=== PATIENT | female | born 1965 | race Caucasian/White ===

== ENCOUNTER → 2018-02-26 14:11 | Outpatient (CLI) | payer OTHER, SELFPAY | PROVIDERS: PCP Obstetrics & Gynecology; Visit Provider Physician Assistant | DX: R10.9 Unspecified abdominal pain (principal) | CPT/HCPCS: 87077; 87086; 87147 ==

== ENCOUNTER → 2018-03-04 07:12 | Outpatient (CLI) | payer OTHER, SELFPAY ==
[2018-03-04 08:11] LABS: Add Manual Diff / Slide Review NO; Basophils Percent Auto 0.8 % (0-2); Eosinophils Percent Auto 4.7 % (2-4); Hematocrit 38.8 % (36-46); Hemoglobin 13.1 g/dL (12.0-16.0); Lymphocytes Percent Auto 36.4 % (25-40); Mean Corpuscular HGB Conc 33.9 % (30-36); Mean Corpuscular Hemoglobin 30.2 PG (26-34); Monocytes Percent Auto 8.5 % (3-14); Neutrophils Absolute Auto 2700 /uL (3000-5900); Neutrophils Percent Auto 49.6 % (50-75); Platelet Count 303 X10^3/uL (150-400); Red Blood Cell Count 4.35 X10^6/uL (4.0-5.2); Red Cell Distribution Width 13.2 % (11.6-14.8); White Blood Cell Count 5.4 X10^3/uL (4.5-11.0)
[2018-03-04 08:28] LABS: Alanine Aminotransferase 26 IU/L (9-52); Albumin 4.3 g/dL (3.5-5.0); Albumin Globulin Ratio 1.5 (1.0-2.8); Alkaline Phosphatase 83 U/L (38-126); Aspartate Aminotransferase 30 IU/L (14-36); BUN Creatinine Ratio 18.6 (6-22); Bilirubin Total 0.3 mg/dL (0.2-1.3); Blood Urea Nitrogen 13 mg/dL (7-17); Calcium 9.4 mg/dL (8.4-10.2); Carbon Dioxide 29 mmol/L (22-32); Chloride 107 mmol/L (98-107); Estimated Glomerular Filt Rate > 60.0 mL/min (>60); Globulin 2.9 g/dL (1.7-4.1); Glucose 105 mg/dL (70-100); HEMOLYSIS < 15 (0-50); Lipase 51 U/L (23-300); Potassium 4.5 mmol/L (3.4-5.1); Sodium 144 mmol/L (137-145); Total Protein 7.2 g/dL (6.3-8.2)
[2018-03-07 13:01] LABS: Cancer Antigen 125 < 6 U/mL (0-35)
== END ==
PROVIDERS: PCP Obstetrics & Gynecology; Visit Provider Physician Assistant
DX: R10.9 Unspecified abdominal pain (principal); R10.2 Pelvic and perineal pain
CPT/HCPCS: 36415; 80053; 83690; 85025; 86304

== ENCOUNTER → 2018-03-16 07:06 | Outpatient (CLI) | payer OTHER, SELFPAY ==
--- NOTE | 2018-03-16 07:07 | DI.US.S_ITS ---
PROCEDURE: US PELVIC COMPLETE INDICATIONS: PAIN TECHNIQUE: Real-time scanning was performed of the pelvic organs, with image documentation. Additional endovaginal scanning was necessary due to incomplete visualization of the adnexal and endometrial structures by transabdominal scanning. COMPARISON: None. FINDINGS: Transabdominal scanning: Limited scanning through the kidneys shows no hydronephrosis. No pathologic free abdominal or pelvic fluid. Endovaginal scanning: Uterus: Uterus is normal in size at 6.7 x 3.8 x 4.1 cm. The endometrium measures are 4.7 mm in combined thickness. Ovaries: Right ovary measures 19 x 16 x 19 mm. The left ovary measures 17 x 8 x 9 mm. Both ovaries and adnexal regions are unremarkable. IMPRESSION: 1. Unremarkable exam. Dictated by: Gerda Toscano M.D. on 03/16/2018 at 10:58 Approved by: Gerda Toscano M.D. on 03/16/2018 at 11:03
== END ==
PROVIDERS: PCP Obstetrics & Gynecology; Visit Provider Obstetrics & Gynecology
DX: R10.2 Pelvic and perineal pain (principal)
CPT/HCPCS: 76830; 76856

== ENCOUNTER → 2018-03-25 15:15 | Outpatient (CLI) | payer OTHER, SELFPAY ==
[2018-03-25 18:59] LABS: Bacteria Urine None Seen
[2018-03-25 19:03] LABS: Appearance Urine UA CLEAR; Bilirubin Urine UA NEGATIVE (NEGATIVE); Color Urine UA YELLOW; Glucose Urine UA NEGATIVE (Normal); Ketones Urine UA NEGATIVE (NEGATIVE); Leukocyte Esterase Urine UA NEGATIVE (NEGATIVE); Nitrite Urine UA NEGATIVE (Negative); Occult Blood Urine UA TRACE-INTACT (Negative); Protein Urine UA NEGATIVE (Negative); Specific Gravity Urine UA >=1.030 (1.000-1.035); Urobilinogen Urine UA 0.2 E.U./dL (0.2)
[2018-03-25 19:24] LABS: RBC Urine 0-1/HPF (0-5/HPF); Squamous Epithelial Cell Urine 0-1 /HPF; WBC Urine 0-1/HPF (0-5/HPF)
[2018-03-25 19:25] LABS: Culture Indicated Urine Specimen Cultured; Urine Comments Cx Request: comments
== END ==
PROVIDERS: PCP Obstetrics & Gynecology; Visit Provider Obstetrics & Gynecology
DX: R30.0 Dysuria (principal)
CPT/HCPCS: 81001; 87086

== ENCOUNTER → 2018-04-28 11:36 | Outpatient (CLI) | payer OTHER, SELFPAY ==
--- NOTE | 2018-04-28 11:37 | DI.MG.S_ITS ---
BILATERAL DIGITAL SCREENING MAMMOGRAM 3D/2D WITH CAD: 04/28/2018 CLINICAL: Routine screening. Family history of breast cancer. Comparison is made to exams dated: 02/27/2016 mammogram, 05/21/2011 mammogram, and 05/19/2010 mammogram - [facility]. The tissue of both breasts is heterogeneously dense. This may lower the sensitivity of mammography. Current study was also evaluated with a Computer Aided Detection (CAD) system. No significant masses, calcifications, or other findings are seen in either breast. There has been no significant interval change. IMPRESSION: NEGATIVE There is no mammographic evidence of malignancy. A 1 year screening mammogram is recommended. This exam was interpreted at Station ID: [id number]. NOTE: For mammograms, a report in lay terms will be sent to the patient. Approximately 15% of breast malignancies will not be visualized mammographically. In the management of a palpable breast mass, a negative mammogram must not discourage biopsy of a clinically suspicious lesion. Electronically Signed By: Ajay hankins/nabil:04/28/2018 17:51:09 letter sent: Normal Exam ACR BI-RADS Category 1: Negative 3341F
== END ==
PROVIDERS: PCP Obstetrics & Gynecology; Visit Provider Obstetrics & Gynecology
DX: Z12.31 Encounter for screening mammogram for malignant neoplasm of breast (principal); Z80.3 Family history of malignant neoplasm of breast
CPT/HCPCS: 77063; 77067

== ENCOUNTER → 2019-06-01 17:02 | Outpatient (CLI) | payer OTHER, SELFPAY ==
--- NOTE | 2019-06-01 17:03 | DI.MG.S_ITS ---
BILATERAL DIGITAL SCREENING MAMMOGRAM 3D/2D WITH CAD: 06/01/2019 CLINICAL: Routine screening. Family history of breast cancer. Comparison is made to exams dated: 04/28/2018 mammogram, 02/27/2016 mammogram, and 05/21/2011 mammogram - [facility]. The tissue of both breasts is heterogeneously dense. This may lower the sensitivity of mammography. Current study was also evaluated with a Computer Aided Detection (CAD) system. No significant masses, calcifications, or other findings are seen in either breast. There has been no significant interval change. IMPRESSION: NEGATIVE There is no mammographic evidence of malignancy. A 1 year screening mammogram is recommended. This exam was interpreted at Station ID: [id number]. NOTE: For mammograms, a report in lay terms will be sent to the patient. Approximately 15% of breast malignancies will not be visualized mammographically. In the management of a palpable breast mass, a negative mammogram must not discourage biopsy of a clinically suspicious lesion. Electronically Signed By: Lianne morton/nabil:06/02/2019 12:30:31 letter sent: Normal Exam ACR BI-RADS Category 1: Negative 3341F
== END ==
PROVIDERS: PCP Nurse Practitioner; Visit Provider Nurse Practitioner
DX: Z12.31 Encounter for screening mammogram for malignant neoplasm of breast (principal); Z80.3 Family history of malignant neoplasm of breast
CPT/HCPCS: 77063; 77067

== ENCOUNTER → 2019-06-29 10:27 | Outpatient (CLI) | payer OTHER, SELFPAY ==
[2019-06-29 10:55] LABS: Creatine Kinase 89 U/L (30-135)
[2019-06-29 11:08] LABS: Troponin I < 0.012 ng/mL (0.01-0.034)
[2019-06-29 11:46] LABS: Free T3, Triiodothyronine Free 3.48 pg/mL (2.77-5.27)
[2019-06-29 12:00] LABS: Thyroid Stimulating Hormone 0.24 uIU/mL (0.47-4.68)
== END ==
PROVIDERS: PCP Nurse Practitioner; Visit Provider Nurse Practitioner
DX: I10 Essential (primary) hypertension (principal); R00.2 Palpitations; R07.89 Other chest pain
CPT/HCPCS: 36415; 82550; 84439; 84443; 84481; 84484

== ENCOUNTER → 2019-07-19 12:58 | Outpatient (CLI) | payer OTHER, SELFPAY ==
--- NOTE | 2019-07-19 | DI.NM.S_ITS ---
PROCEDURE: NM KAREN PERF SPECT REST & STR Rest and exercise myocardial perfusion SPECT with gated imaging and ejection fraction RADIOPHARMACEUTICAL: 26.6 mCi Tc-99m sestamibi IV at rest and 25.6 mCi Tc-99m sestamibi IV at peak exercise. A [id number] was performed. INDICATIONS: PALPATATIONS TECHNIQUE: Radiopharmaceutical was injected at peak stress test, and also at rest. SPECT images were obtained. SPECT myocardial perfusion images were displayed in short axis, horizontal long axis, and vertical long axis views. Gated images were reviewed using [employer] software. COMPARISON: None. CARDIAC STRESS: A standard Hector treadmill exercise tolerance test was performed by the patient under the supervision of an attending staff. The patient exercised for 10 minutes and 21 seconds; functional aerobic impairment (AURELIO) is -34 %. Hemodynamic data: There is normal blood pressure and heart rate response to exercise stress. Patient achieved 92% of maximum predicted heart rate at peak exercise. Symptoms: Patient denied chest pain during exercise. EKG: No diagnostic EKG changes of ischemia; no obvious ectopy or arrhythmias but the baseline artifact at peak exercise limits sensitivity. No arrhythmias in recovery. FINDINGS: Raw data: There is good myocardial labeling by radiotracer. No significant motion artifacts. Izbi-zn-vnbbl ratio is 0.48 (normal is less than 0.38 for sestamibi tracer, and less than 0.50 for thallium tracer). Left ventricle function: Gated images demonstrate normal left ventricle wall thickening. No segmental wall motion abnormality. No transient ischemic dilation; TID is 0.94 (normal less than 1.3). The left ventricle resting end-diastolic volume is 109 mL. Left ventricle stress ejection fraction is 70%; normal values are above 45%. Myocardial perfusion: There is as small-moderate size, mild perfusion defect in apical lateral wall and apical septal wall that resolves on prone imaging, consistent with artifact. Otherwise normal distribution of activity in the left and right ventricular myocardium. No fixed or reversible perfusion defects. IMPRESSION: -No evidence of ischemia or scar. -Borderline elevation in lung/heart ratio. Suspect this is related to technic and measurement of lung uptake over breast tissue. Please correlate clinically. -Great exercise capacity. -Overall this is a low risk study. Dictated by: Domingo Glaser M.D. on 07/20/2019 at 17:09 Approved by: Domingo Glaser M.D. on 07/20/2019 at 17:15
== END ==
PROVIDERS: Family Provider Nurse Practitioner; PCP Nurse Practitioner; Referring Provider Nurse Practitioner; Visit Provider Nurse Practitioner
DX: R00.2 Palpitations (principal); E03.9 Hypothyroidism, unspecified; E78.5 Hyperlipidemia, unspecified
CPT/HCPCS: 78452; 93016; 93017; 93018; A9502

== ENCOUNTER → 2019-08-01 07:58 | Outpatient (CLI) | payer OTHER, SELFPAY ==
--- NOTE | 2019-08-01 07:58 | DI.ECHO.S_ITS ---
[facility] [facility] +---------+ Hospital +---------+ : : [address] : : : : [id number] : : : : Phone: [phone]+ Echocardiogram Report + + :Name: MICHELLE BERNAL Study Date: 08/01/2019 Height: 65 in : :[facility] Weight: 150 lb : : Gender: Female BSA: 1.8 m2 : :: 1965 Age: 53 yrs BP: 142/90 mmHg: :Reason For Study: Palpitations : : Performed By: Daphney Alfonso : :Referring: ANDREE DANIEL : + + Interpretation Summary The ejection fraction is estimated to be 55-60%. There is mild tricuspid regurgitation. The right ventricular systolic pressure is estimated to be at least 28 mmHg based on an estimated right atrial pressure of 8 mm Hg. There is trace mitral regurgitation. Procedure: A two-dimensional transthoracic echocardiogram with color flow and Doppler was performed. The study quality was technically adequate. There is no prior echocardiogram noted for this patient. The patient was in normal sinus rhythm during the exam. Left Ventricle: The left ventricle is normal in size and wall thickness. The ejection fraction is estimated to be 55-60%. Left ventricular wall motion is normal. Diastolic parameters suggest probable normal left ventricular diastolic function and normal filling pressures. Right Ventricle: The right ventricle is normal in size and function. Atria: Both atria are mildly dilated. There is no Doppler evidence for an interatrial shunt. Mitral Valve: The mitral valve is normal in structure and function. There is trace mitral regurgitation. Aortic Valve: The aortic valve is trileaflet. The aortic valve opens well. There is no aortic valve stenosis. No aortic regurgitation is present. Tricuspid Valve: The tricuspid valve is normal in structure and function. There is mild tricuspid regurgitation. The right ventricular systolic pressure is estimated to be at least 28 mmHg based on an estimated right atrial pressure of 8 mm Hg. Pulmonic Valve: The pulmonic valve is normal in structure and function. There is mild pulmonic regurgitation. Great Vessels: The aortic root is normal size. The ascending aorta is at the upper limits of normal in size. The IVC is of normal diameter and collapses greater than 50% with a sniff. This suggests a low right atrial pressure of 3 mm Hg. Pericardium/ Pleura There is no pericardial effusion. There is no pleural effusion. MMode/2D Measurements & Calculations LVIDd: 4.7 cm LVOT diam: 2.1 cm LVIDs: 3.0 cm Ao root diam: 3.2 cm FS: 35.1 % asc Aorta Diam: 3.5 cm EPSS: 0.72 cm Ao Arch Diam (Prox Trans): 3.3 cm IVSd: 0.99 cm LVPWd: 0.94 cm LV mcnamara. diameter/BSA (cm/m^2): 2.7 LV sys. diameter/BSA (cm/m^2): 1.7 LA A2 area: 19.6 cm2 RA long axis: 5.0 cm LA A4 area: 18.7 cm2 RA area: 18.9 cm2 LA length (vol): 4.6 cm RA vol: 60.1 ml LA vol: 67.8 ml RA : 34.4 ml/m2 LA vol index: 38.7 ml/m2 IVC diam: 2.1 cm RVD1 (basal): 3.5 cm TAPSE: 3.6 cm Doppler Measurements & Calculations Ao V2 max: 131.9 cm/sec LVOT Max Doyle: 124.6 cm/sec Ao V2 mean: 79.0 cm/sec LV V1 max P.2 mmHg Ao max P.0 mmHg LV V1 VTI: 22.9 cm Ao mean P.2 mmHg LAUREL(I,D): 3.1 cm2 Ao V2 VTI: 26.4 cm LAUREL(V,D): 3.3 cm2 sev ratio: 0.87 LAUREL indexed to BSA (cm^2/m^2): 1.8 MV E max doyle: 76.3 cm/sec TR max doyle: 222.7 cm/sec MV A max doyle: 68.4 cm/sec TR max P.9 mmHg MV E/A: 1.1 PA V2 max: 76.9 cm/sec Med Peak E' Doyle: 9.3 cm/sec PA V2 mean: 55.7 cm/sec E/E' med: 8.2 PA mean P.3 mmHg Lat Peak E' Doyle: 10.5 cm/sec PA pr(Accel): 2.7 mmHg E/E' lat: 7.2 E/e' average: 7.7 MV dec time: 0.17 sec MV P1/2t: 52.7 msec MV P1/2t max doyle: 76.9 cm/sec SV(LVOT): 81.2 ml MVA(P1/2t): 4.2 cm2 Reading Physician:09:43 AM
== END ==
PROVIDERS: Family Provider Nurse Practitioner; PCP Nurse Practitioner; Referring Provider Nurse Practitioner; Visit Provider Nurse Practitioner
DX: I07.1 Rheumatic tricuspid insufficiency (principal); I37.1 Nonrheumatic pulmonary valve insufficiency; R00.2 Palpitations; E03.9 Hypothyroidism, unspecified; E78.5 Hyperlipidemia, unspecified
CPT/HCPCS: 93306

== ENCOUNTER → 2019-08-07 10:41 | Outpatient (CLI) | payer OTHER, SELFPAY ==
--- NOTE | 2019-07-20 14:56 | PM.TREADMILL ---
Cardiac Stress Test Report Referral & Results Date Patient Seen: 07/20/19 Requesting provider: Amelia Bellamy Indication: Palpitations Rest ECG: Unremarkable Procedure Note: Today following both written and verbal informed consent the patient was exercised according to a standard Hector protocol patient went for a total of 10 minutes 21 seconds achieving a maximum heart rate of 154 maximum systolic blood pressure of 158. This is approximately 12.8 METS. Exercise was terminated at this point because of targets were met. Patient was also given Cardiolite through a previously started Hep-Lock IV by the diagnostic imaging staff approximately 1 minute prior to the cessation of exercise. There are no ST-T segment changes Functional aerobic impairment rates way way off the scale, I estimate her functional aerobic capacity to be equal to that of an active 33-year-old woman Impression: No ECG evidence of ischemia Excellent exercise capacity Please see perfusion imaging report as well Please note: Actual ECG tracings can be found in the PACS system.
--- NOTE | 2019-08-22 11:19 | P.HOLT.S_ITS ---
Mechanical Striper Report Referral & Results Date Patient Seen: 08/07/19 Requesting provider: Amelia Bellamy Indication: Palpitations Duration of monitoring (days): 7 Diary information: There were 39 patient triggered events and 0 patient diary entries Patient triggered events were associated variously with sinus rhythm, PVCs, PACs, and ventricular bigeminy Data: Minimum heart rate identified was 43 beats per minute at 02:41 on 08/09/2019 Maximum heart rate was 172 beats per minute at 09:07 on 08/15/2019 Less than 1% of identified beats were supraventricular ectopic in origin Approximately 1.2% of identified beats were PVCs. Patient's longest run of ventricular bigeminy was 8.5 seconds and longest run of ventricular trigeminy was 6.8 seconds 1 run of an SVT/atrial tachycardia occurred lasting 5 beats at a rate of 116 beats per minute suggesting atrial tachycardia Impression: Patient's symptoms possibly due to occasional PVCs as above. No other serious dysrhythmias identified on this study
== END ==
PROVIDERS: Family Provider Nurse Practitioner; PCP Nurse Practitioner; Referring Provider Nurse Practitioner; Visit Provider Nurse Practitioner
DX: R00.2 Palpitations (principal)
CPT/HCPCS: 0296T; 0298T

== ENCOUNTER → 2019-11-25 09:51 | Outpatient (CLI) | payer OTHER, SELFPAY ==
[2019-11-25 12:06] LABS: Add Manual Diff / Slide Review NO; Basophils Absolute Auto 0 /uL (0-100); Basophils Percent Auto 0.6 % (0-2); Eosinophils Absolute Auto 300 /uL (0-450); Hematocrit 38.8 % (36-46); Hemoglobin 13.2 g/dL (12.0-16.0); Lymphocytes Absolute Auto 2200 /uL (1100-4500); Lymphocytes Percent Auto 39.4 % (25-40); Mean Corpuscular Hemoglobin 30.2 PG (26-34); Mean Corpuscular Volume 88.8 fL (80-100); Monocytes Absolute Auto 500 /uL (0-900); Monocytes Percent Auto 8.3 % (3-14); Neutrophils Absolute Auto 2500 /uL (1500-7000); Neutrophils Percent Auto 45.7 % (50-75); Platelet Count 268 X10^3/uL (150-400); Red Blood Cell Count 4.37 X10^6/uL (4.0-5.2); Red Cell Distribution Width 13.4 % (11.6-14.8); White Blood Cell Count 5.5 X10^3/uL (4.5-11.0)
[2019-11-25 12:32] LABS: Alanine Aminotransferase 16 IU/L (<35); Albumin 4.3 g/dL (3.5-5.0); Albumin Globulin Ratio 1.8 (1.0-2.8); Alkaline Phosphatase 69 U/L (38-126); Aspartate Aminotransferase 24 IU/L (14-36); BUN Creatinine Ratio 23.5 (6-22); Bilirubin Total 0.7 mg/dL (0.2-1.3); Blood Urea Nitrogen 16 mg/dL (7-17); Calcium 9.5 mg/dL (8.4-10.2); Carbon Dioxide 30 mmol/L (22-32); Chloride 106 mmol/L (98-107); Cholesterol 212 mg/dL (140-199); Estimated Glomerular Filt Rate > 60.0 mL/min (>60); Globulin 2.4 g/dL (1.7-4.1); Glucose 93 mg/dL (70-100); HDL Cholesterol 74 mg/dL (40-60); HEMOLYSIS < 15 (0-50); LDL Cholesterol Calculated 127 mg/dL (<100); Potassium 4.5 mmol/L (3.4-5.1); Sodium 139 mmol/L (137-145); Total Protein 6.7 g/dL (6.3-8.2); Triglycerides 53 mg/dL (35-150)
[2019-11-25 12:47] LABS: Free T4, Direct Thyroxine 1.22 ng/dL (0.78-2.19)
[2019-11-25 13:01] LABS: Thyroid Stimulating Hormone 0.588 uIU/mL (0.47-4.68)
== END ==
PROVIDERS: Family Provider Nurse Practitioner; PCP Nurse Practitioner; Referring Provider Nurse Practitioner; Visit Provider Nurse Practitioner
DX: Z00.00 Encounter for general adult medical examination without abnormal findings (principal); E03.9 Hypothyroidism, unspecified; E78.5 Hyperlipidemia, unspecified
CPT/HCPCS: 36415; 80053; 80061; 84439; 84443; 84481; 85025

== ENCOUNTER → 2020-06-23 10:02 | Outpatient (CLI) | payer OTHER, SELFPAY ==
[2020-06-23 10:33] LABS: COVID19 -Nasal RAPID Negative (Negative)
== END ==
PROVIDERS: Family Provider Nurse Practitioner; PCP Nurse Practitioner; Visit Provider Physician Assistant
DX: Z20.822 Contact with and (suspected) exposure to COVID-19 (principal)
CPT/HCPCS: 87635

== ENCOUNTER → 2021-01-24 07:40 | Outpatient (CLI) | payer OTHER, SELFPAY ==
[2021-01-24 08:38] LABS: Hematocrit 39.6 % (36-46); Hemoglobin 13.2 g/dL (12.0-16.0); Mean Corpuscular HGB Conc 33.3 % (30-36); Mean Corpuscular Hemoglobin 30.1 PG (26-34); Mean Corpuscular Volume 90.5 fL (80-100); Platelet Count 277 X10^3/uL (150-400); Red Blood Cell Count 4.37 X10^6/uL (4.0-5.2); Red Cell Distribution Width 13.5 % (11.6-14.8); White Blood Cell Count 5.7 X10^3/uL (4.5-11.0)
[2021-01-24 09:03] LABS: Alanine Aminotransferase 22 IU/L (<35); Albumin 4.3 g/dL (3.5-5.0); Albumin Globulin Ratio 1.5 (1.0-2.8); Alkaline Phosphatase 76 U/L (38-126); Aspartate Aminotransferase 34 IU/L (14-36); BUN Creatinine Ratio 37.3 (6-22); Bilirubin Total 0.3 mg/dL (0.2-1.3); Blood Urea Nitrogen 25 mg/dL (7-17); Calcium 9.5 mg/dL (8.4-10.2); Carbon Dioxide 28 mmol/L (22-32); Chloride 108 mmol/L (98-107); Cholesterol 191 mg/dL (140-199); Estimated Glomerular Filt Rate > 60.0 mL/min (>60); Globulin 2.9 g/dL (1.7-4.1); Glucose 113 mg/dL (70-100); HDL Cholesterol 75 mg/dL (40-60); HEMOLYSIS < 15 (0-50); LDL Cholesterol Calculated 108 mg/dL (<100); Potassium 4.4 mmol/L (3.4-5.1); Sodium 140 mmol/L (137-145); Total Protein 7.2 g/dL (6.3-8.2); Triglycerides 41 mg/dL (35-150)
[2021-01-24 09:43] LABS: Thyroid Stimulating Hormone 1.36 uIU/mL (0.47-4.68)
== END ==
PROVIDERS: Family Provider Nurse Practitioner; PCP Nurse Practitioner; Referring Provider Nurse Practitioner; Visit Provider Nurse Practitioner
DX: Z00.00 Encounter for general adult medical examination without abnormal findings (principal); I10 Essential (primary) hypertension; E03.9 Hypothyroidism, unspecified
CPT/HCPCS: 36415; 80053; 80061; 84443; 85027

== ENCOUNTER 2021-06-02 05:59 | Day surgery (SDC) | payer OTHER, SELFPAY ==
[2021-06-02 07:09] VITALS: BMI 25.0
[2021-06-02] MEDS: LACTATED RINGERS 1,000 ML 200 ML IV (07:26)
[2021-06-02 07:30] LABS: COVID19 -Nasal RAPID Negative (Negative)
[2021-06-02 07:34] VITALS: BP 133/85; PULSE 69; RESP 18; TEMP 35.7; O2SAT 96
--- NOTE | 2021-06-02 07:38 | PM.HP.1 ---
History of Present Illness History of Present Illness Date Patient Seen: 06/02/21 Time Patient Seen: 07:38 Chief complaint: CTC Narrative: The patient presents for colorectal sreening. They have never had any previous examination for such. No personal or family history of colon cancer. On further history denies any recent gastrointestinal symptoms. No nausea, vomiting, abdominal pain, loss of appetite, unexplained weight loss, change in bowel habits, diarrhea, constipation, melena, hematochezia, or bright red blood per rectum. Patient History Medical History Acquired hypothyroidism Ankle pain (~2006) Anorexia nervosa (~1980) Carpal tunnel syndrome (~1993) Depression with anxiety Fibromyalgia (~2017) Foot pain (~2016) Fractures (~2006) Hearing loss History of urinary incontinence (~2017) Precancerous changes of the cervix (~1997) Restless leg syndrome (~1987) Vision disorder Surgical History Anesthesia History of foot surgery (~2016) Status post loop electrosurgical excision procedure (LEEP) of cervix Family & Social History Family History Father Prostate cancer Mother Alzheimer's disease Sister Fibromyalgia Grandfather Alzheimer's disease Grandmother Cancer Grandmother Diabetes mellitus Hypertension Stroke Family/Other SIDS (sudden syndrome) Social History: household members spouse Tobacco & Substance use: Smoking Status Never smoker alcohol intake current alcohol intake frequency 0-2 drinks per day Substance Use Type does not use Meds Home Medications and Allergies Home Medications Medication Instructions Recorded Confirmed Type gabapentin 100 mg capsule 100 mg PO TID #540 cap 06/10/20 06/02/21 Rx valacyclovir 1 gram tablet See Rx Instructions .ROUTE 12/11/20 06/02/21 Rx .COMPLEX #12 tab levothyroxine 50 mcg tablet See Rx Instructions .ROUTE 04/21/21 06/02/21 Rx .COMPLEX #90 tab sodium,potassium,mag sulfates 17.5 See Rx Instructions PO .COMPLEX 05/06/21 06/02/21 Rx gram-3.13 gram-1.6 gram oral soln #354 ml (Suprep Bowel Prep Kit) Allergies Allergy/AdvReac Type Severity Reaction Status Date / Time No Known Drug Allergies Allergy Unverified 02/05/21 15:11 Exam Vital Signs (past 8 hours): - 06/02/21 07:34 Temperature 96.3 F L Pulse Rate 69 Respiratory Rate 18 Blood Pressure 133/85 Pulse Oximetry 96 Oxygen Delivery Method Room Air Narrative Exam Narrative: Constitutional-She is oriented to person, place and time. No apparent distress Cardiovascular- regular rate, no peripheral edema Pulmonary-unlabored respiratory effort, no audible wheezing Abdominal-soft, non-tender, non-distended Musculoskeletal-no cyanosis or clubbing Skin-warm and dry Objective Labs Labs: Laboratory Results - last 24 hr 06/02/21 07:10 SARS-CoV-2 (PCR) Negative Assessment & Plan Assessment & Plan narrative: The patient requires colorectal screening and colonoscopy is recommended. Technical details were discussed. Risks, benefits, alternatives explained. Risks including but not limited to myocardial infarction, aspiration, bleeding, pain, missed lesion, incomplete examination, need for further radiographic studies, colonic perforation, and need for major abdominal surgery were discussed. All questions were answered to their satisfaction, and they are in agreement with this plan. Time Spent With Patient Critical Care time: I spent a total of [] minutes of critical care time on this patient's care today; this time is exclusive of procedural time.
[2021-06-02] MEDS: fentaNYL 250 MCG/5 ML INJ IV (07:51)
[2021-06-02] MEDS: MIDAZOLAM 5 MG/5 ML VIAL IV (07:55)
--- NOTE | 2021-06-02 08:06 | PM.OP.COLON ---
Operative Date/Time/Diagnoses Date of procedure: 06/02/21 Time of procedure: 08:06 Pre-op diagnosis: Screening colonoscopy Post-op diagnosis: same Procedure & Clinicians Study performed: Colonoscopy Same procedure as scheduled: Yes Indications: Screening colonoscopy no prior scope Surgeon: Francisco Taylor Procedure Notes Procedure in detail: Medications: Conscious sedation using 6 mg IV midazolam and 150 mcg IV of fentanyl The history and physical was performed/updated and the patient is ASA class is 2. The procedure was discussed in detail with the patient. Potential risks complications including infection, bleeding, missed diagnosis, perforation, need for surgery, and were explained. Their questions were answered and informed consent was obtained. Patient was brought to the procedure room and placed standard monitoring equipment. The patient's vital signs were monitored continuously throughout the entire procedure. Prior to starting time-out was performed. The patient was placed in the left lateral recumbent position. Procedural sedation was administered. Examination began with a thorough inspection of the perianal area there was no evidence of fissures, fistulae, external hemorrhoids or cutaneous malignancy. The colonoscopy scope was then placed into the anal canal and was advanced to the cecum, which was identified by the ileocecal valve, the appendiceal orifice and the confluence of the taenia. The scope was then slowly withdrawn examining colon thoroughly in all directions, irrigating it of any residual stool. FINDINGS 1. No masses polyps or inflammation 2. Sigmoid diverticulosis The patient tolerated the procedure well. They will be discharged once criteria are met. The prep was of good/excellent quality. The withdrawl time was 7 minutes. The sedation time was 16 minutes. Specimen(s): none sent Complications: none Impression: Normal healthy colon Post-procedure Recommendations: Colonoscopy in 10 years Disposition: same day surgery
[2021-06-02 08:09] VITALS: BP 107/69; PULSE 54; RESP 13; TEMP 36.7; O2SAT 97
[2021-06-02 08:15] VITALS: BP 116/79; PULSE 57; RESP 14; TEMP 35.9; O2SAT 97
[2021-06-02 08:20] VITALS: BP 107/69; PULSE 51; RESP 12; O2SAT 97
[2021-06-02 08:35] VITALS: BP 116/84; PULSE 62; RESP 15; TEMP 36.4; O2SAT 97
[2021-06-02 08:38] VITALS: BP 134/84; PULSE 54; RESP 15; TEMP 36.4; O2SAT 98
== END 2021-06-02 09:00 | disposition home or self-care (01) ==
PROVIDERS: Family Provider Nurse Practitioner; PCP Nurse Practitioner; Referring Provider Surgery; Visit Provider Surgery
PROC: 0DJD8ZZ Inspection of Lower Intestinal Tract, Via Natural or Artificial Opening Endoscopic (ICD-10-PCS; CPT 45378; principal; 2021-06-02 07:45)
DX: Z12.11 Encounter for screening for malignant neoplasm of colon (principal); E03.9 Hypothyroidism, unspecified; M79.7 Fibromyalgia; Z20.822 Contact with and (suspected) exposure to COVID-19; K57.30 Diverticulosis of large intestine without perforation or abscess without bleeding
CPT/HCPCS: 45378; 87635; 99152; J2250; J3010

== ENCOUNTER 2021-06-14 16:03 | Emergency (ER) | payer OTHER, SELFPAY ==
[2021-06-14 16:15] VITALS: O2SAT 99
[2021-06-14 16:16] VITALS: BP 156/81; PULSE 67; O2SAT 99
[2021-06-14 16:26] VITALS: BP 156/81; PULSE 67; RESP 18; TEMP 36.1; O2SAT 99; BMI 25.0
--- NOTE | 2021-06-14 16:26 | DI.RAD.S_ITS ---
PROCEDURE: XR HIP W PEL IF DONE LT 2V INDICATIONS: groin pain after fall TECHNIQUE: AP pelvis with lateral view(s) of the left hip(s). COMPARISON: None. FINDINGS: Bones: There is a mildly displaced fracture of the left inferior pubic ramus. No additional fractures are detected. No hip dislocation can be seen. Soft tissues: The visualized bowel gas pattern is normal. No suspicious soft tissue calcifications. IMPRESSION: Mildly displaced fracture of the left inferior pubic ramus. Please consider a dedicated hip CT for further evaluation. Dictated by: Will Chavez M.D. on 06/14/2021 at 15:51 Approved by: Will Chavez M.D. on 06/14/2021 at 15:52
[2021-06-14 16:30] VITALS: BP 141/70; PULSE 65; O2SAT 99
--- NOTE | 2021-06-14 16:31 | ED_ITS ---
HPI - Extremity Injury (Lower) General Chief Complaint: Extremity Injury, Lower Stated Complaint: LT. LEG PAIN DUE TO FALL Time Seen by Provider: 06/14/21 16:06 Source: patient Mode of arrival: Family Vehicle Limitations: no limitations History of Present Illness HPI Narrative: Patient is a 55-year-old female who is here for evaluation of left groin pain. Earlier today she was snowboarding. She states she fell while she was snowboarding. She had pain in her left groin. She was able to get up and snowboard a little further but then had to stop. She stated that they then ate lunch. Afterwards she had a very difficult time standing and could not put any weight on her left leg. She reports no other injuries from the event. Has not taken anything for the symptoms prior to arrival. Pain with weight-bearing. Related Data Previous Rx's Medication Instructions Recorded gabapentin 100 mg capsule 100 mg PO TID #540 cap 06/10/20 valacyclovir 1 gram tablet See Rx Instructions .ROUTE 12/11/20 .COMPLEX #12 tab levothyroxine 50 mcg tablet See Rx Instructions .ROUTE 04/21/21 .COMPLEX #90 tab hydrocodone 5 mg-acetaminophen 325 1 tab PO Q4-6H PRN #14 tab 06/14/21 mg tablet Allergies Allergy/AdvReac Type Severity Reaction Status Date / Time No Known Drug Allergies Allergy Unverified 02/05/21 15:11 Review of Systems Constitutional Constitutional: Reports system reviewed and no additional complaints, except as documented Musculoskeletal Musculoskeletal: Reports system reviewed and no additional complaints, except as documented and Reports as per HPI Neurologic Neurologic: Reports system reviewed and no additional complaints, except as documented Hematologic/Lymphatic On Anticoagulants: No Patient History Medical History Acquired hypothyroidism Ankle pain (~2006) Anorexia nervosa (~1980) Carpal tunnel syndrome (~1993) Depression with anxiety Fibromyalgia (~2017) Foot pain (~2016) Fractures (~2006) Hearing loss History of urinary incontinence (~2017) Precancerous changes of the cervix (~1997) Restless leg syndrome (~1987) Vision disorder Surgical History Anesthesia History of foot surgery (~2016) Status post loop electrosurgical excision procedure (LEEP) of cervix Family History Father Prostate cancer Mother Alzheimer's disease Sister Fibromyalgia Grandfather Alzheimer's disease Grandmother Cancer Grandmother Diabetes mellitus Hypertension Stroke Family/Other SIDS (sudden infant syndrome) Social History household members: spouse Smoking Status: Never smoker alcohol intake: current Smoking Status: Never smoker alcohol intake frequency: 0-2 drinks per day Substance Use Type: does not use Exam Initial Vital Signs Initial Vital Signs: Vital Signs Pulse Oximetry 99 06/14/21 16:15 Const General: cooperative and healthy appearing Resp Effort & Inspection: normal respiratory effort Cardio Rate: regular rate Neuro General: patient alert and patient awake Extrem Other: Upper extremities unremarkable. Right lower extremity unremarkable. Left lower extremity does not seem to have discomfort with palpation movement of the left ankle or left knee. She does have tenderness to palpation laterally over the greater trochanter on the left. She can internally and externally rotate left hip with minimal discomfort. Can flex and extend with minimal discomfort. Course Orders Ordered: ED Orders 06/14/21 16:26 XR hip w pel if done LT 2V Stat Discontinued Medications Hydrocodone Bitart/Acetaminophen (Hydrocodone/Acet 5/325 Tablet) 1 tab PO NOW ONE Stop: 06/14/21 16:51 Last Admin: 06/14/21 16:59 Dose: 1 tab Documented by: FIDEL Vital Signs Vital signs: Vital Signs - 8 hr 06/14/21 16:15 06/14/21 16:16 06/14/21 16:26 Temperature 96.9 F L Pulse Rate 67 67 Respiratory Rate 18 Blood Pressure 156/81 H 156/81 H Pulse Oximetry 99 99 99 06/14/21 16:30 Temperature Pulse Rate 65 Respiratory Rate Blood Pressure 141/70 H Pulse Oximetry 99 MDM - Extremity Injury (Lower) Imaging Data Extremity x-ray #1: Radiologist's Impression: [address] [address] XRay Report Signed Patient: Brandy Rios MR#: [id number] : 1965 Acct:[id number] Age/Sex: 55 / F Date of Service: 06/14/21 Loc: ED Accession Number: [id number] ?? Procedure: XR hip w pel if done LT 2V Ordering Provider: Umer Watson D.O. PROCEDURE:? XR HIP W PEL IF DONE LT 2V ? INDICATIONS:? groin pain after fall ? TECHNIQUE:? AP pelvis with lateral view(s) of the left hip(s).? ? COMPARISON:? None. ? FINDINGS:? ? Bones:? There is a mildly displaced fracture of the left inferior pubic ramus. No additional fractures are detected.? No hip dislocation can be seen. ? Soft tissues:? The visualized bowel gas pattern is normal.? No suspicious soft tissue calcifications.? ? ? IMPRESSION:? Mildly displaced fracture of the left inferior pubic ramus. ? Please consider a dedicated hip CT for further evaluation. ? Dictated by: Will Chavez M.D. on 06/14/2021 at 15:51 ? ? Approved by: Will Chavez M.D. on 06/14/2021 at 15:52? MDM Narrative Medical decision making narrative: X-ray showed left inferior pubic rami fracture. This does correspond to where she is having discomfort. No other fractures noted. I have low suspicion for femoral neck fracture given her exam. Plan is to send her home with pain medication and crutches and weight-bearing as tolerated. She was given return precautions. She expressed understanding and agreement. Discharge Plan Departure Patient Disposition: Home Clinical Impression: Fracture of left inferior pubic ramus Instructions: How to Use Crutches Activity Restrictions/Additional Instructions: Continue all of your medications as directed. Use the pain medication as needed. Also use the crutches as needed. You can put pressure on your left leg as tolerated. Contact your primary doctor for a follow-up. Return to the emergency department for any new or worsening symptoms. Prescriptions: New hydrocodone-acetaminophen 5-325 mg tablet 1 tab PO Q4-6H PRN (Reason: pain) Qty: 14 0RF No Action gabapentin 100 mg capsule 100 mg PO TID Qty: 540 2RF Rx Instructions: Take 1-2 capsules 3x/day for pain valacyclovir 1 gram tablet See Rx Instructions .ROUTE .COMPLEX Qty: 12 3RF Dose Instruction: TAKE 1 TABLET BY MOUTH DAILY FOR 4 DAYS Rx Instructions: TAKE 1 TABLET BY MOUTH DAILY FOR 4 DAYS levothyroxine 50 mcg tablet See Rx Instructions .ROUTE .COMPLEX Qty: 90 3RF Hold Instructions: Patient d/c Dose Instruction: TAKE 1 TABLET BY MOUTH DAILY ON AN EMPTY STOMACH WITH A SIP OF WATER 30 MIN BEFORE EATING. Rx Instructions: TAKE 1 TABLET BY MOUTH DAILY ON AN EMPTY STOMACH WITH A SIP OF WATER 30 MIN BEFORE EATING. Referrals: Amelia Bellamy ARNP [Primary Care Provider] -
[2021-06-14] MEDS: HYDROCODONE/ACET 5/325 TABLET 1 TAB PO (16:59)
== END 2021-06-14 17:02 | disposition home or self-care (01) ==
PROVIDERS: Emergency Provider Emergency Medicine; Family Provider Nurse Practitioner; PCP Nurse Practitioner
DX: S32.592A Other specified fracture of left pubis, initial encounter for closed fracture (principal); W18.30XA Fall on same level, unspecified, initial encounter; Y93.23 Activity, snow (alpine) (downhill) skiing, snowboarding, sledding, tobogganing and snow tubing
CPT/HCPCS: 73502; 99283; 99284

== ENCOUNTER → 2021-06-23 17:44 | Outpatient (CLI) | payer OTHER, SELFPAY ==
--- NOTE | 2021-06-23 | DI.MRI.S_ITS ---
PROCEDURE: MR LUMBAR SPINE WO CON INDICATIONS: LOW BACK PAIN, UNSPECIFIED BACK PAIN LATERALITY TECHNIQUE: Noncontrast sagittal T1 spin echo and T2 fast echo, sagittal STIR, axial T1 and T2 fast spin echo through the lumbar spine. In cases with scoliosis, additional coronal T2 fast spin echo may be performed. COMPARISON: None. FINDINGS: Image quality: Excellent. Alignment and Curvature: There is trace L1-L2, L2-L3, L3-L4 and L4-L5 retrolisthesis. Bone Marrow: Insufficiency fracture noted in the left ala of the sacrum. Modic type 2 reactive endplate changes noted adjacent to the T12-L1, L3-L4 and L4-L5 discs. No acute vertebral body compression fractures. Spinal Cord: Conus medullaris terminates at the L1 level. Visualized cord demonstrates normal signal and size. Paraspinous Soft Tissues: No paravertebral masses. T12-L1: Loss of disc signal and disc height. Mild, diffuse disc bulge. No central stenosis. No neural foraminal narrowing. No neural compression. L1-L2: Loss of disc signal and slight loss of disc height. Mild, diffuse disc bulge. No central stenosis. Small right disc protrusion. Mild narrowing of the right neural foramen. No neural compression. L2-L3: Loss of disc signal. Mild, diffuse disc bulge. Mild bilateral facet hypertrophy. Mild narrowing of the central canal. Mild bilateral neural foraminal narrowing. No neural compression. L3-L4: Loss of disc signal. Mild, diffuse disc bulge. Mild to moderate bilateral facet hypertrophy. Mild narrowing of the central canal. Mild bilateral neural foraminal narrowing. No neural compression. L4-L5: Loss of disc signal and height. Mild, diffuse disc bulge. Large left central disc extrusion. Extruded disc material extends inferiorly along the posterior margin of the L5 vertebral body to the level of the right lateral recess. Extruded disc material compresses the traversing right L5 nerve root. Mild to moderate bilateral facet hypertrophy. Moderate narrowing of the central canal. Moderate bilateral neural foraminal narrowing. L5-S1: Loss of disc signal. Mild, diffuse disc bulge. [id number] bilateral facet hypertrophy. No central stenosis. Mild bilateral neural foraminal narrowing. No neural compression IMPRESSION: 1. Multilevel degenerative disc disease. 3. Multilevel facet arthropathy. 3. No severe central canal narrowing. 4. No severe neural foraminal narrowing. 5. Large left central L5-S1 disc extrusion which compresses the traversing left L5 nerve root. 6. Left sacral insufficiency fracture. Dictated by: Edna Mclain MD, PhD on 06/24/2021 at 9:15 Approved by: Edna Mclain MD, PhD on 06/24/2021 at 9:43
== END ==
PROVIDERS: Family Provider Nurse Practitioner; PCP Nurse Practitioner; Referring Provider Physical Medicine & Rehabilitation; Visit Provider Physical Medicine & Rehabilitation
DX: M51.36 Other intervertebral disc degeneration, lumbar region (principal); M51.37 Other intervertebral disc degeneration, lumbosacral region; M47.816 Spondylosis without myelopathy or radiculopathy, lumbar region; M47.817 Spondylosis without myelopathy or radiculopathy, lumbosacral region; M51.27 Other intervertebral disc displacement, lumbosacral region; M84.48XA Pathological fracture, other site, initial encounter for fracture
CPT/HCPCS: 72148

== ENCOUNTER → 2021-12-22 06:57 | Outpatient (CLI) | payer OTHER, SELFPAY ==
--- NOTE | 2021-12-22 06:59 | DI.MG.S_ITS ---
BILATERAL DIGITAL SCREENING MAMMOGRAM 3D/2D WITH CAD: 12/22/2021 CLINICAL: Routine screening. Family history of breast cancer. Comparison is made to exams dated: 06/01/2019 mammogram, 04/28/2018 mammogram, 02/27/2016 mammogram, and 05/21/2011 mammogram - [facility]. The tissue of both breasts is heterogeneously dense. This may lower the sensitivity of mammography. Current study was also evaluated with a Computer Aided Detection (CAD) system. No significant masses, calcifications, or other findings are seen in either breast. There has been no significant interval change. IMPRESSION: NEGATIVE There is no mammographic evidence of malignancy. A 1 year screening mammogram is recommended. Based on the Tyrer Cuzick model (a risk assessment model) the patient's lifetime risk is 6.8% and her 10 year risk is 2.0%. According to the ACR, ACS, and NCCN guidelines, an annual breast MRI exam along with mammogram is recommended if the patient's lifetime risk is 20% or greater. This exam was interpreted at Station ID: [id number]. NOTE: For mammograms, a report in lay terms will be sent to the patient. Approximately 15% of breast malignancies will not be visualized mammographically. In the management of a palpable breast mass, a negative mammogram must not discourage biopsy of a clinically suspicious lesion. Electronically Signed By: Narciso romero/nabil:12/22/2021 10:07:53 letter sent: Normal Exam ACR BI-RADS Category 1: Negative [id number]
== END ==
PROVIDERS: Family Provider Nurse Practitioner; PCP Nurse Practitioner; Referring Provider Nurse Practitioner; Visit Provider Nurse Practitioner
DX: Z12.31 Encounter for screening mammogram for malignant neoplasm of breast (principal); Z80.3 Family history of malignant neoplasm of breast
CPT/HCPCS: 77063; 77067

== ENCOUNTER → 2022-01-12 06:55 | Outpatient (CLI) | payer OTHER, SELFPAY ==
--- NOTE | 2022-01-12 08:05 | DI.MRI.S_ITS ---
PROCEDURE: MR SHOULDER RT WO CON INDICATIONS: Shoulder/suprascapular pain TECHNIQUE: Noncontrast oblique coronal T2 fast spin echo with fat saturation, oblique sagittal T1 spin echo and T2 fast spin echo with fat saturation, axial T1 spin echo and T2 fast spin echo with fat saturation through the shoulder. COMPARISON: None. FINDINGS: Image quality: Excellent. Rotator cuff: There is moderate tendinosis of the supraspinatus, infraspinatus and subscapularis tendons and subscapularis tendons, accompanied by partial-thickness tear involving both articular and bursal surfaces. Sagittal images demonstrate no rotator cuff muscle atrophy. Bones and bursae: No bone marrow contusions or fractures. Moderate acromioclavicular and glenohumeral joint degeneration. The acromion demonstrates conventional anatomy, without an os acromiale. There is a small amount of subcoracoid bursal fluid consistent with mild bursitis. Capsule and soft tissues: Labrum appears intact except mild degenerative fraying of the superior and inferior labrum. The long head of the biceps tendon demonstrates normal location and morphology. The rotator interval appears irregular with fibrosis. The coracohumeral ligament is thickened. IMPRESSION: 1. Moderate tendinosis of the supraspinatus, infraspinatus with superimposed partial-thickness tear. 2. Mild subcoracoid bursitis. 3. Moderate acromioclavicular and glenoid humeral joint degeneration. 4. Irregular rotator interval and thickened coracohumeral ligament. The findings are associated with adhesive capsulitis. Recommend clinical correlation. Dictated by: Jena Gamble M.D. on 01/12/2022 at 9:51 Approved by: Jena Gamble M.D. on 01/12/2022 at 10:22
== END ==
PROVIDERS: Family Provider Nurse Practitioner; PCP Nurse Practitioner; Referring Provider Nurse Practitioner; Visit Provider Nurse Practitioner
DX: M75.111 Incomplete rotator cuff tear or rupture of right shoulder, not specified as traumatic (principal); M75.01 Adhesive capsulitis of right shoulder; M75.51 Bursitis of right shoulder; M19.011 Primary osteoarthritis, right shoulder; M25.511 Pain in right shoulder
CPT/HCPCS: 73221

== ENCOUNTER → 2022-07-16 11:40 | Outpatient (CLI) | payer OTHER, SELFPAY ==
[2022-07-16 13:22] LABS: Hematocrit 40.4 % (36-46); Hemoglobin 13.5 g/dL (12.0-16.0); Mean Corpuscular HGB Conc 33.3 % (30-36); Mean Corpuscular Hemoglobin 29.1 PG (26-34); Mean Corpuscular Volume 87.3 fL (80-100); Platelet Count 300 X10^3/uL (150-400); Red Blood Cell Count 4.63 X10^6/uL (4.0-5.2); Red Cell Distribution Width 13.6 % (11.6-14.8)
[2022-07-16 13:41] LABS: Alanine Aminotransferase 28 IU/L (<35); Albumin 4.4 g/dL (3.5-5.0); Albumin Globulin Ratio 1.5 (1.0-2.8); Alkaline Phosphatase 85 U/L (38-126); Aspartate Aminotransferase 28 IU/L (14-36); BUN Creatinine Ratio 31.3 (6-22); Bilirubin Total 0.5 mg/dL (0.2-1.3); Blood Urea Nitrogen 20 mg/dL (7-17); Calcium 9.5 mg/dL (8.4-10.2); Carbon Dioxide 27 mmol/L (22-32); Chloride 104 mmol/L (98-107); Cholesterol 212 mg/dL (140-199); Estimated Glomerular Filt Rate > 60 mL/min (>60); Globulin 2.9 g/dL (1.7-4.1); Glucose 83 mg/dL (70-100); HDL Cholesterol 78 mg/dL (40-60); HEMOLYSIS < 15 (0-50); LDL Cholesterol Calculated 117 mg/dL (<100); Potassium 4.1 mmol/L (3.4-5.1); Sodium 141 mmol/L (137-145); Total Protein 7.3 g/dL (6.3-8.2); Triglycerides 85 mg/dL (35-150)
[2022-07-16 13:56] LABS: Free T3, Triiodothyronine Free 3.92 pg/mL (2.77-5.27); Free T4, Direct Thyroxine 1.26 ng/dL (0.78-2.19)
[2022-07-16 14:09] LABS: Thyroid Stimulating Hormone 1.33 uIU/mL (0.47-4.68)
== END ==
PROVIDERS: Family Provider Nurse Practitioner; PCP Nurse Practitioner; Referring Provider Nurse Practitioner; Visit Provider Nurse Practitioner
DX: Z00.00 Encounter for general adult medical examination without abnormal findings (principal)
CPT/HCPCS: 36415; 80053; 80061; 84439; 84443; 84481; 85027

== ENCOUNTER → 2022-07-25 07:02 | Outpatient (CLI) | payer OTHER, SELFPAY ==
--- NOTE | 2022-07-25 07:05 | DI.MRI.S_ITS ---
PROCEDURE: MR SHOULDER RT WO CON INDICATIONS: ROTATOR CUFF SYNDROME RIGHT SHOULDER TECHNIQUE: Noncontrast oblique coronal T2 fast spin echo with fat saturation, oblique sagittal T1 spin echo and T2 fast spin echo with fat saturation, axial T1 spin echo and T2 fast spin echo with fat saturation through the shoulder. COMPARISON: [facility], MR, MR SHOULDER RT WO CON, 01/12/2022, 7:21. FINDINGS: Image quality: Excellent. Rotator cuff: Full-thickness rupture involving distal supraspinatus at its insertion on the humeral head is seen with up to 1.1 cm medial retraction of torn tendon fibers. Moderate grade articular surface partial-thickness tear involving distal infraspinatus tendon is seen at its insertion on the humeral head extending to musculotendinous junction. Low-grade intrasubstance partial-thickness tear involving distal subscapularis is also noted. Sagittal images demonstrate mild supraspinatus muscle atrophy. Bones and bursae: No bone marrow contusions or fractures. Moderate acromioclavicular joint osteoarthritic changes are seen with joint space narrowing, and downward osteophyte formation depressing the musculotendinous junction of supraspinatus. Mild to moderate glenohumeral joint osteoarthritic changes also seen. There is moderate amount of subacromial subdeltoid bursal fluid. No gross loose bodies. Capsule and soft tissues: Labrum is grossly intact. The long head of the biceps tendon appears thickened. The rotator interval appears normal, without fibrosis. The coracohumeral ligament is normal in thickness. IMPRESSION: 1. Full-thickness rupture involving distal supraspinatus at its insertion on the humeral head with up to 1.1 cm medial retraction of torn tendon fibers. Moderate grade articular surface partial-thickness tear involving distal infraspinatus extending to musculotendinous junction. Low-grade intrasubstance partial-thickness tear involving distal subscapularis. Mild supraspinatus muscle atrophy. 2. Moderate acromioclavicular joint osteoarthritis and [id number] glenohumeral joint osteoarthritis. Moderate amount of subacromial subdeltoid bursal fluid. No loose bodies. No fracture or dislocation. 3. No definite focal labral tear. 4. Tendinosis and low-grade intrasubstance partial-thickness tear involving proximal intra-articular portion of long head of biceps. Dictated by: Master Car M.D. on 07/27/2022 at 8:22 Approved by: Master Car M.D. on 07/27/2022 at 8:33
== END ==
PROVIDERS: Family Provider Nurse Practitioner; PCP Nurse Practitioner; Referring Provider Orthopaedic Surgery; Visit Provider Orthopaedic Surgery
DX: M75.121 Complete rotator cuff tear or rupture of right shoulder, not specified as traumatic (principal); M19.011 Primary osteoarthritis, right shoulder; S46.111A Strain of muscle, fascia and tendon of long head of biceps, right arm, initial encounter
CPT/HCPCS: 73221

== ENCOUNTER → 2024-01-04 10:16 | Outpatient (CLI) | payer OTHER, SELFPAY ==
[2024-01-04 10:57] LABS: Add Manual Diff / Slide Review NO; Basophils Absolute Auto 0 /uL (0-100); Basophils Percent Auto 0.6 % (0-2); Eosinophils Absolute Auto 400 /uL (0-450); Eosinophils Percent Auto 6.8 % (2-4); Hemoglobin 13.5 g/dL (12.0-16.0); Lymphocytes Absolute Auto 2400 /uL (1100-4500); Lymphocytes Percent Auto 41.4 % (25-40); Mean Corpuscular HGB Conc 33.9 % (30-36); Mean Corpuscular Hemoglobin 29.9 PG (26-34); Mean Corpuscular Volume 88.1 fL (80-100); Monocytes Absolute Auto 400 /uL (0-900); Monocytes Percent Auto 7.4 % (3-14); Neutrophils Absolute Auto 2600 /uL (1500-7000); Neutrophils Percent Auto 43.8 % (50-75); Platelet Count 292 X10^3/uL (150-400); Red Blood Cell Count 4.54 X10^6/uL (4.0-5.2); Red Cell Distribution Width 14.3 % (11.6-14.8); White Blood Cell Count 5.9 X10^3/uL (4.5-11.0)
[2024-01-04 11:25] LABS: Alanine Aminotransferase 17 IU/L (<35); Albumin 4.4 g/dL (3.5-5.0); Albumin Globulin Ratio 1.6 (1.0-2.8); Alkaline Phosphatase 79 U/L (38-126); Aspartate Aminotransferase 25 IU/L (14-36); BUN Creatinine Ratio 15.9 (6-22); Bilirubin Total 0.8 mg/dL (0.2-1.3); Blood Urea Nitrogen 11 mg/dL (7-17); Calcium 9.4 mg/dL (8.4-10.2); Carbon Dioxide 28 mmol/L (22-32); Chloride 108 mmol/L (98-107); Cholesterol 219 mg/dL (140-199); Estimated Glomerular Filt Rate > 60 mL/min (>60); Globulin 2.7 g/dL (1.7-4.1); Glucose 101 mg/dL (70-100); HDL Cholesterol 70 mg/dL (40-60); HEMOLYSIS < 15 (0-50); LDL Cholesterol Calculated 133 mg/dL (<100); Potassium 4.2 mmol/L (3.4-5.1); Sodium 140 mmol/L (137-145); Total Protein 7.1 g/dL (6.3-8.2); Triglycerides 79 mg/dL (35-150)
[2024-01-04 12:02] LABS: Creatinine Urine Random 66.57 mg/dL
[2024-01-04 12:05] LABS: Free T3, Triiodothyronine Free 3.64 pg/mL (2.77-5.27); Free T4, Direct Thyroxine 1.03 ng/dL (0.78-2.19)
[2024-01-04 12:08] LABS: Microalbumin Urine Random 0.8 mg/dL (0-1.6)
[2024-01-04 12:18] LABS: Thyroid Stimulating Hormone 1.16 uIU/mL (0.47-4.68)
[2024-01-04 12:37] LABS: HIV 1 & 2 Ab/Ag 4th Gen Combo NEGATIVE (NEGATIVE); Hep C Virus Ab w/Reflex Quant NEGATIVE s/c (NEGATIVE)
== END ==
PROVIDERS: Family Provider Nurse Practitioner; PCP Nurse Practitioner; Referring Provider Nurse Practitioner; Visit Provider Nurse Practitioner
DX: Z00.00 Encounter for general adult medical examination without abnormal findings (principal)
CPT/HCPCS: 36415; 80053; 80061; 82043; 82570; 84439; 84443; 84481; 85025; 86803; 87389

== ENCOUNTER → 2024-03-04 09:03 | Outpatient (CLI) | payer OTHER, SELFPAY ==
--- NOTE | 2024-03-04 09:05 | DI.MG.S_ITS ---
BILATERAL DIGITAL SCREENING MAMMOGRAM 3D/2D WITH CAD: 03/04/2024 CLINICAL: Routine screening. Family history of breast cancer. Comparison is made to exams dated: 06/01/2019 mammogram, 12/22/2021 mammogram, and 04/28/2018 mammogram - [facility]. The breasts are heterogeneously dense, which may obscure small masses (category c / 51-75% glandular tissue). Current study was also evaluated with a Computer Aided Detection (CAD) system. No significant masses, calcifications, or other findings are seen in either breast. There has been no significant interval change. IMPRESSION: NEGATIVE There is no mammographic evidence of malignancy. A 1 year screening mammogram is recommended. Based on the Tyrer Cuzick model (a risk assessment model) the patient's lifetime risk is 6.6% and her 10 year risk is 2.3%. According to the ACR, ACS, and NCCN guidelines, an annual breast MRI exam along with mammogram is recommended if the patient's lifetime risk is 20% or greater. This exam was interpreted at Station ID: [id number]. NOTE: For mammograms, a report in lay terms will be sent to the patient. Approximately 15% of breast malignancies will not be visualized mammographically. In the management of a palpable breast mass, a negative mammogram must not discourage biopsy of a clinically suspicious lesion. Electronically Signed By: Gerber durant/nabil:03/04/2024 14:23:04 letter sent: Normal Exam ACR BI-RADS Category 1: Negative
== END ==
PROVIDERS: Family Provider Nurse Practitioner; Referring Provider Nurse Practitioner; Visit Provider Nurse Practitioner
DX: Z12.31 Encounter for screening mammogram for malignant neoplasm of breast (principal); Z80.3 Family history of malignant neoplasm of breast; R92.333 Mammographic heterogeneous density, bilateral breasts
CPT/HCPCS: 77063; 77067